=== PATIENT | male | born 1950 | race Caucasian/White ===

== ENCOUNTER → 2017-10-04 | Outpatient (CLI) | payer OTHER ==
[~2017-10-04] MED LIST: BUPIVACAINE MPF 0.25% 10 ML VIAL.; IOHEXOL 180 MG/ML 10 ML VIAL.; methylPREDNISolone ACETATE 80 MG/ML VIAL.
== END | disposition home or self-care (01) ==
LOC: PNCL 09:24
DX: M19.012 Primary osteoarthritis, left shoulder (principal); M16.11 Unilateral primary osteoarthritis, right hip; I10 Essential (primary) hypertension; E11.9 Type 2 diabetes mellitus without complications; J44.9 Chronic obstructive pulmonary disease, unspecified; Z87.891 Personal history of nicotine dependence; Z95.1 Presence of aortocoronary bypass graft; E78.00 Pure hypercholesterolemia, unspecified; F32.9 Major depressive disorder, single episode, unspecified; Z98.890 Other specified postprocedural states; Z79.899 Other long term (current) drug therapy; Z79.82 Long term (current) use of aspirin
CPT/HCPCS: 20610; 77002; J1040; J3490

== ENCOUNTER → 2017-10-19 | Outpatient (CLI) | payer OTHER | END | disposition home or self-care (01) | LOC: PNCL 09:21 | DX: M16.11 Unilateral primary osteoarthritis, right hip (principal); M19.012 Primary osteoarthritis, left shoulder | CPT/HCPCS: 20610; 77002; J1040; J3490 ==

== ENCOUNTER → 2018-01-21 | Outpatient (CLI) | payer MEDICARE, BC, OTHER | END | disposition home or self-care (01) | LOC: CT 09:16 | DX: J84.10 Pulmonary fibrosis, unspecified (principal); N28.1 Cyst of kidney, acquired; K86.89 Other specified diseases of pancreas; R91.1 Solitary pulmonary nodule | CPT/HCPCS: 71250 ==

== ENCOUNTER → 2018-05-24 | Outpatient (CLI) | payer MEDICARE, BC, OTHER ==
[~2018-05-24] MED LIST changes: +ASPI-482 PO; +ATOR40TA59 PO; +BACL10TA PO; +BUDE10.22 IH; -BUPIVACAINE MPF 0.25% 10 ML VIAL.; +CARV3.12 PO; +CHOL100013 PO; +DULO60CA6 PO; +FINA5TAB4 PO; -IOHEXOL 180 MG/ML 10 ML VIAL.; +LOSA100T2 PO; +MECL12.52 PO; +MULT1TAB52 PO; +OMEG1CAP6 PO; +PROVENTIL HFA6.7 GM IH; +TRAZ-85 PO; +ZINC50TA2 PO; -methylPREDNISolone ACETATE 80 MG/ML VIAL.
--- NOTE | 2018-05-24 10:27 | RAD ---
CT CHEST WO CONTRAST Indication: Lung nodule Technique: Noncontrast CT imaging was performed of the chest, multiplanar reconstruction images submitted. One or more of the following individualized dose reduction techniques were utilized for this examination: 1. Automated exposure control 2. Adjustment of the mA and/or kV according to patient size 3. Use of iterative reconstruction technique. Comparison: January 21, 2018 Findings: There again has been a median sternotomy. There is no new pericardial pleural effusion or pneumothorax. Thoracic aortic caliber is stable, ascending thoracic aorta ectatic about 3.9 cm. There is coronary calcification. No new significantly enlarged nodes are identified of the chest, although some mediastinal nodes as seen previously. Largest left paratracheal node measures about 1 cm short axis dimension, borderline in size although stable. There is mild emphysema. Major airways are patent. There is a tiny 0.2 cm nodule along the minor and major right upper lobe axial image 145 series 3, likely stable. There is what may represent a right hilar node axial image 160 about 0.8 cm short axis dimension although stable. There is again mild linear density of the left lower lobe probably due to fibrotic change. Tiny 0.2 cm nodule along the left major fissure axial image 145 series 3 is stable. Tiny 0.2 cm left upper lobe nodule axial image 55 is stable as is 0.2 cm left upper lobe nodule axial image 96. Thin section axial images are available for this exam, not available for previous exam. There is a 4.7 cm lesion of the superior left kidney with density measurements about 29 Hounsfield units. There is adjacent focus of density more anteriorly otherwise difficult to characterize if underlying lesion estimated about 2.4 cm although this could be due to lobulated margin of the kidney. There is small right renal calculus about 0.2 cm. IMPRESSION: 1. There are some tiny noncalcified pulmonary nodules although stable. If there are increased risk factors for neoplasm, 12 month follow-up is recommended as per revised Fleischner guidelines. 2. There is stable ectatic ascending thoracic aorta about 3.9 cm. There is coronary calcification. There has been a median sternotomy. 3. Borderline enlarged left paratracheal node is stable as are other smaller nodes of the mediastinum, no new significantly enlarged nodes. Nonspecific right hilar node is stable, not considered significantly enlarged. 4. There is again hypodense lesion of the superior left kidney which may be a complex cyst although also possible adjacent lesion more anteriorly, underlying solid mass difficult to exclude for which renal ultrasound advised. 5. There is small superior right renal calculus. Electronically signed by: Dick Vieyra MD (05/24/2018 10:24 AM) [id number]
== END | disposition home or self-care (01) ==
LOC: CT 08:46
PROVIDERS: ATTEND Internal Medicine Pulmonary Disease
DX: N20.0 Calculus of kidney (principal); I25.10 Atherosclerotic heart disease of native coronary artery without angina pectoris; I77.810 Thoracic aortic ectasia; I10 Essential (primary) hypertension; E11.9 Type 2 diabetes mellitus without complications; E78.00 Pure hypercholesterolemia, unspecified; J44.9 Chronic obstructive pulmonary disease, unspecified; Z87.891 Personal history of nicotine dependence
CPT/HCPCS: 71250

== ENCOUNTER → 2018-06-03 | Outpatient (CLI) | payer MEDICARE, BC, OTHER ==
--- NOTE | 2018-06-03 15:28 | RAD ---
Renal ultrasound, 06/03/2018: HISTORY: Left renal mass Right kidney measures 12.0 cm in length while the left kidney measures 12.3 cm. There is a 4.6 cm cyst arising from the upper pole the left kidney. No right renal mass is seen. The kidneys show no evidence of obstruction. The prostate gland is moderately enlarged impressing upon the posterior wall of the urinary bladder. The partially filled urinary bladder is otherwise unremarkable. IMPRESSION: 1. Left renal cyst. 2. The kidneys are otherwise unremarkable. 3. Moderate nonspecific prostatic enlargement. Electronically signed by: Toño Palmer MD (06/03/2018 3:24 PM) [facility]
== END | disposition home or self-care (01) ==
LOC: US 07:47
PROVIDERS: ATTEND Family Medicine
DX: N28.1 Cyst of kidney, acquired (principal); N40.0 Benign prostatic hyperplasia without lower urinary tract symptoms; I10 Essential (primary) hypertension; E11.9 Type 2 diabetes mellitus without complications; E78.00 Pure hypercholesterolemia, unspecified; M16.11 Unilateral primary osteoarthritis, right hip; M19.012 Primary osteoarthritis, left shoulder; J44.9 Chronic obstructive pulmonary disease, unspecified; I25.10 Atherosclerotic heart disease of native coronary artery without angina pectoris; Z87.891 Personal history of nicotine dependence; Z95.1 Presence of aortocoronary bypass graft
CPT/HCPCS: 76770

== ENCOUNTER → 2018-09-09 | Outpatient (CLI) | payer MEDICARE, OTHER ==
[~2018-09-09] MED LIST changes: +ALBU2.5V8 IH; +CONTRAST GIVEN. MC PRN; +IOHEXOL 300 MG/ML 100ML VIAL. IV ONE; -PROVENTIL HFA6.7 GM IH
[2018-09-09 11:15] LABS: CREATININE 1.5 mg/dL (0.7-1.3); GFR 46.4
--- NOTE | 2018-09-09 14:50 | RAD ---
CT ABDOMEN PELVIS WO/W Indication: KIDNEY STONE. ORGAN ABNORMALITY ON US OR XRAY.
IV OMNI 300 60 MLS AND WATER Exposure: One or more of the following individualized dose reduction techniques were utilized for this examination: 1. Automated exposure control 2. Adjustment of the mA and/or kV according to patient size 3. Use of iterative reconstruction technique. Comparison: None are available. Technique: Scanning performed before, during and after intravenous contrast administration. Oral contrast is not given. 3-D MIP reconstructions are obtained of the urinary tracts. FINDINGS: Lower thorax: Markings in both lung bases, likely due to atelectasis or fibrosis. Mild coronary artery calcification. Urinary tracts:No urolithiasis or hydronephrosis. Urinary bladder: Incompletely distended. There is some convex soft tissue density at the posterior inferior urinary bladder, measures about 23 mm x 15 mm x 36 mm. This may be indentation from the prostate, but a urinary bladder wall mass is also possible. Prostate gland is mildly enlarged. Kidneys: Hypodense lesions identified at both kidneys. Largest left upper pole measures 4.6 cm and 8 Hounsfield units compatible with a cyst. Smaller lesions are too small to characterize but likely also represent cysts. There is a small hyperdense lesion at the lower pole of the left kidney measures 8 mm, may represent a hemorrhagic cyst but a small solid mass is not possible to exclude. Liver: Unremarkable Spleen: Unremarkable Pancreas: Fatty atrophy Adrenals:No evidence of mass. Gallbladder: Contracted, no calcified stone Aorta: Mildly calcified, no evidence of aneurysm. Lymph nodes: Small retroperitoneal nodes, no significant enlargement. GI tract: Mild diverticulosis. Appendix is normal. Reproductive organs: Prostate gland is enlarged. Peritoneum: No evidence of pneumoperitoneum. No free fluid. Abdominal wall:Unremarkable Spine: Degenerative spondylosis. Bones: No destructive process. IMPRESSION: 1. There is a convex masslike structure at the posterior inferior urinary bladder. Nonspecific, considerations include urinary bladder wall tumor, prostate mass or prostatomegaly. Recommend cystoscopy for further evaluation. 2. Small 8 mm hyperdense lesion at the lower pole of the left kidney, could represent hemorrhagic cyst versus small solid renal mass. Recommend follow-up CT imaging or renal ultrasound. 3. Multiple additional hypodense renal lesions, most likely cysts. Electronically signed by: Mario Rubio MD (09/09/2018 2:46 PM) [facility]
== END | disposition home or self-care (01) ==
LOC: CT 10:43
PROVIDERS: ATTEND Urology
DX: K57.90 Diverticulosis of intestine, part unspecified, without perforation or abscess without bleeding (principal); N28.9 Disorder of kidney and ureter, unspecified; M47.896 Other spondylosis, lumbar region; R59.0 Localized enlarged lymph nodes; J44.9 Chronic obstructive pulmonary disease, unspecified; I10 Essential (primary) hypertension; I25.2 Old myocardial infarction; I25.10 Atherosclerotic heart disease of native coronary artery without angina pectoris; Z95.1 Presence of aortocoronary bypass graft; Z79.01 Long term (current) use of anticoagulants; Z87.891 Personal history of nicotine dependence
CPT/HCPCS: 36415; 74178; 82565; Q9967

== ENCOUNTER → 2018-10-04 | Outpatient (CLI) | payer MEDICARE, BC ==
[~2018-10-04] MED LIST changes: -CONTRAST GIVEN. MC PRN; -IOHEXOL 300 MG/ML 100ML VIAL. IV ONE; +TRAZ-118 PO; -TRAZ-85 PO
--- NOTE | 2018-10-04 10:27 | CARD ---
MR#: [id number] Date of Study: 10/04/2018 Ordering Physician: ENEDINA MCELROY, Referring Physician: ENEDINA MCELROY, Tech: Lorenza Vargas SVITLANA APPROVED REPORT EXAM: Two-dimensional and M-mode echocardiogram with Doppler and color Doppler. Other Information Quality : GoodHR: 65bpm Rhythm : NSR INDICATION Hypertension/HCVD 2D DIMENSIONS RVDd4.1 (2.9-3.5cm)Left Atrium(2D)5.1 (1.6-4.0cm) IVSd1.4 (0.7-1.1cm)Aortic Root(2D)3.8 (2.0-3.7cm) LVDd5.6 (3.9-5.9cm)LVOT Diameter2.4 (1.8-2.4cm) PWd1.2 (0.7-1.1cm)LVDs3.7 (2.5-4.0cm) FS (%) 34.2 %SV97.5 ml LVEF(%)62.6 (>50%) M-Mode DIMENSIONS Left Atrium(MM)5.01 (2.5-4.0cm)Aortic Root4.11 (2.2-3.7cm) Aortic Valve AoV Peak Calvin.146.9cm/sAoV VTI32.8cm AO Peak GR.8.6mmHgLVOT Peak Calvin.100.3cm/s AO Mean GR.4mmHgAVA (VMAX)3.19cm2 RADHA (VTI)3.00cm2 Mitral Valve MV E Gjlxmrhn57.0cm/sMV DECEL [id number] MV A Yrfurpoy29.9cm/sE/A Ratio1.2 MV A Lmpdhssn937it Pulmonary Valve PV Peak Exfvuyel572.4cm/s LEFT VENTRICLE The left ventricle is normal size. There is mild concentric left ventricular hypertrophy. The left ve ntricular systolic function is normal and the ejection fraction is within normal range. The Ejection Fraction is 55-60%. The basal inferoseptum appears akinetic. Remainder of the LV has normal wall svetlana on. Transmitral Doppler flow pattern is Grade II-pseudonormal filling dynamics. RIGHT VENTRICLE The right ventricle is mildly dilated. There is normal right ventricular wall thickness. The right ve ntricular systolic function is normal. ATRIA The left atrium is mildly dilated. The right atrium is mildly dilated. The interatrial septum is inta ct with no evidence for an atrial septal defect or patent foramen ovale as noted on 2-D or Doppler im aging. AORTIC VALVE The aortic valve is normal in structure and function. The aortic valve is trileaflet. Doppler and Col or Flow revealed no significant aortic regurgitation. There is no significant aortic valvular stenosi s. MITRAL VALVE The mitral valve is normal in structure and function. There is no evidence of mitral valve prolapse. There is no mitral valve stenosis. Doppler and Color-flow revealed trace mitral regurgitation. TRICUSPID VALVE The tricuspid valve is normal in structure and function. Doppler and Color Flow revealed trace tricus pid regurgitation. There is no tricuspid valve prolapse or vegetation. There is no tricuspid valve st enosis. PULMONIC VALVE Doppler and Color Flow revealed no pulmonic valvular regurgitation. There is no pulmonic valvular hernan nosis. GREAT VESSELS The aortic root is normal in size. The ascending aorta is normal in size. The IVC is normal in size a nd collapses >50% with inspiration. PERICARDIAL EFFUSION There is no evidence of significant pericardial effusion. Critical Notification Critical Value: No <Conclusion> The left ventricular systolic function is normal and the ejection fraction is within normal range. Th e Ejection Fraction is 55-60%. There is mild concentric left ventricular hypertrophy. The basal inferoseptum appears akinetic. Remainder of the LV has normal wall motion. Signed by : Enedina Mcelroy, Electronically Approved : 10/04/2018 10:26:00
== END | disposition home or self-care (01) ==
LOC: ECHO 07:48
PROVIDERS: ATTEND Internal Medicine Cardiovascular Disease
DX: I11.9 Hypertensive heart disease without heart failure (principal)
CPT/HCPCS: 93306

== ENCOUNTER → 2019-03-18 | Outpatient (CLI) | payer MEDICARE, BC ==
[2019-03-18 08:26] LABS: CREATININE 1.4 mg/dL (0.7-1.3); GFR 50.2
[2019-03-18] MEDS: IOHEXOL 300 MG/ML 100ML VIAL. IV ONE (09:00)
--- NOTE | 2019-03-18 13:18 | RAD ---
EXAM: CT Abdomen and Pelvis with IV contrast CLINICAL HISTORY: Renal and bladder lesions on prior CT. COMPARISON: CT 09/09/18, ultrasound 06/13/2018 TECHNIQUE: Helical CT of the abdomen and pelvis was performed following the CT urogram protocol. Specifically noncontrast and delayed phase images were obtained through the abdomen and pelvis and cortical medullary phase images were obtained through the abdomen. PQRS compliance statement - One or more of the following individualized dose reduction techniques were utilized for this study: 1. Automated exposure control 2. Adjustment of the mA and/or kV according to patient size 3. Use of iterative reconstruction technique FINDINGS: Lower chest: Linear opacities in the lower lobes likely scarring/atelectasis. Coronary artery calcifications are seen. Abdomen and Pelvis: No focal liver lesion. Gallbladder is normal. No biliary ductal dilatation. Spleen is unremarkable. Adrenal glands are normal. Pancreas is unremarkable. Moderate colonic stool content is seen. Appendix is normal. No small or large bowel dilatation. Colonic diverticulosis without evidence for acute diverticulitis. No renal tract calculus. The nephrograms are symmetric. The kidneys are normal in size and shape. A 6 mm hyperdense exophytic left lower pole renal lesion is seen, given the small size, evaluation for enhancement is limited although may represent hemorrhagic/proteinaceous cyst. A 4.5 cm left upper pole nonenhancing cystic lesion is grossly stable. A nonenhancing right upper pole and exophytic left lower pole renal cystic lesions are also grossly stable. The collecting systems and ureters are normal. Nodularity of the bladder wall dependently likely from the adjacent enlarged prostate, unchanged to 09/09/2018. No abdominal or pelvic ascites. No abdominal or pelvic lymphadenopathy by size criteria. Atherosclerotic ossifications of aorta are seen. Bones: Multilevel degenerative changes of the spine are seen. IMPRESSION: 1. Bilateral hypodense renal lesions are favored to represent cysts and are essentially stable. 2. Hypodense, mildly exophytic left lower pole renal lesion is too small to accurately characterize. 3. Nodularity of the inferior bladder wall posteriorly, likely from enlarged, nodular prostate, unchanged. Prostatic or bladder mass is not entirely excluded. Cystoscopy would provide additional details. Electronically signed by: Nish Wong MD (03/18/2019 1:15 PM) [facility]
== END | disposition home or self-care (01) ==
LOC: CT 07:52
PROVIDERS: ATTEND Urology
DX: N28.89 Other specified disorders of kidney and ureter (principal); I70.0 Atherosclerosis of aorta; M47.819 Spondylosis without myelopathy or radiculopathy, site unspecified
CPT/HCPCS: 36415; 74178; 82565; Q9967

== ENCOUNTER → 2019-04-18 | Outpatient (CLI) | payer MEDICARE, BC ==
--- NOTE | 2019-04-18 11:39 | RAD ---
MR#: [id number] Date of Study: 04/18/2019 Ordering Physician: ENEDINA MCELROY, Referring Physician: AJMES MEJIA Tech: RT Lori (R) (N) APPROVED REPORT Test Type: Exercise Stress Nurse/Tech: Shavon Yoder R.N. Test Indications: dyspnea, fatigue Cardiac History: Family history, Hypertension, Diabetes, CAD, CABG in 2007 Medications: See Electronic Medical Record Medical History: See Electronic Medical Record Resting ECG: NSR Resting Heart Rate: 60 bpm Resting Blood Pressure: 140/61mmHg Pretest Chest Pain: No chest pain Nurse/Tech Notes S1S2, lungs sound clear Consent: The procedure was explained to the patient in lay terms. Informed consent was witnessed. Rajesh eout was entered into [employer]. History and Stress Test performed by Shavon Yoder R.N. Stress Symptoms Dyspnea, Claudication, pt had upper audible wheezing at end of exercise but not heard in lower lungs, . wheezing subsided after 2 minutes of rest. we had to reduce rate of protocol and incline to finis h the last minute of test POST EXERCISE Reason for Termination: Reached target heart rate Target HR: 128 Max HR: 128 bpm 85% of Maximum Predicted HR: 151 bpm Exercise duration: 5 min min:sec, 2 Stage Max Blood Pressure: 197/65mmHg Blood Pressure response to exercise: Normal blood pressure response during stress. Chest Pain: No. Arrhythmia: No. INTERPRETATION Stress EKG Conclusion: The resting EKG shows a sinus rhythm and nonspecific ST-T wave changes. The stress EKG showed no significant changes from baseline. No EKG evidence of stress-induced ischemia. Imaging Protocol IMAGE PROTOCOL: Rest Tc-99m/stress Tc-99m 1 day Rest: Stress: Viability: Radiopharm.Tc99m AfgnwzflbCv14o Sestamibi Dose10.5mCi 33mCi Duration 13min. 13min. Img Date 04/18/2019 04/18/2019 Inj-Img Oaxh37qrb. 60min. Rest Admin Site:IV - Right HandAdministrator:Ca De León, RT (R)(N) Stress Admin Site: IV - Right HandAdministrator: Aniket Treviño, RT (R)(N) STRESS DATA End Diast. Vol.131.0mlLVEDV index BSA54.0ml End Syst. Vol.44.0mlLVESV index BSA18.0ml Myocardial Ilnj373.0gEject. Xpdxzjfe03.0% Stress Scores Regional WT0.00Summed WT3.00 Regional WM0.00Summed WM0.00 LV Perfusion The stress scans showed no significant defects. The rest scans showed no significant defects. Nuclear imaging shows no reversible ischemia or infarct. Wall Motion Left ventricular systolic function is intact with no regional wall motion abnormalities and an ejecti on fraction of 66%. LV Perf. Quant 17 Seg. SSS0.00 17 Seg. SRS0.00 17 Seg. SDS0.00 Stress Defect Extent (% LAD)0.00Rest Defect Extent (% LAD)0.00Rev. Defect Extent (% LAD)0.00 Stress Defect Extent (% LCX) 0.00Rest Defect Extent (% LCX)0.00Rev. Defect Extent (% LCX)0.00 Stress Defect Extent (% RCA)0.00Rest Defect Extent (% RCA)0.00Rev. Defect Extent (% RCA)0.00 Stress Defect Extent (% MATA)0.00Rest Defect Extent (% MATA)0.00Rev. Defect Extent (% MATA)0.00 Conclusion 1. Fair exercise tolerance. 2. No chest pain reported with exertion. 3. No EKG evidence of stressed induced ischemia. 4. Hypertensive response to exertion. 5. Nuclear imaging shows no reversible ischemia or infarct. 6. Normal left ventricular systolic function with an ejection fraction of 66%. 7. Moderately low risk treadmill nuclear stress test. Signed by : Tommy Mcnulty MD Electronically Approved : 04/18/2019 11:38:46
== END | disposition home or self-care (01) ==
LOC: NM 09:20
PROVIDERS: ATTEND Internal Medicine Cardiovascular Disease
DX: R06.00 Dyspnea, unspecified (principal); R53.83 Other fatigue; I10 Essential (primary) hypertension; E11.9 Type 2 diabetes mellitus without complications; I25.10 Atherosclerotic heart disease of native coronary artery without angina pectoris; Z95.1 Presence of aortocoronary bypass graft; Z82.49 Family history of ischemic heart disease and other diseases of the circulatory system; Z79.01 Long term (current) use of anticoagulants
CPT/HCPCS: 78452; 93017; A9500; 96376

== ENCOUNTER → 2019-07-08 | Outpatient (CLI) | payer MEDICARE, BC ==
--- NOTE | 2019-07-09 11:00 | RAD ---
Examination: CT CHEST WO CONTRAST History: Lung nodule Comparison/Correlation: 05/24/2018 CT chest without contrast Findings: Axial images of the chest were obtained without contrast. Sagittal and coronal reformatted images were provided. Sternal wires are present. No enlarged thoracic lymph nodes. Borderline left paratracheal lymph node previously described has remained stable. No suspicious pulmonary nodule or mass. Few perifissural lymph nodes are present. No infiltrates or pleural effusions. Left renal superior pole cyst is present. Bony structures are unremarkable. Impression: No suspicious pulmonary nodule or other suspicious finding. PQRS Compliance Statement: One or more of the following individualized dose reduction techniques were utilized for this examination: 1. Automated exposure control 2. Adjustment of the mA and/or kV according to patient size 3. Use of iterative reconstruction technique Electronically signed by: Vaibhav Fernandes MD (07/09/2019 10:57 AM) [facility]
== END | disposition home or self-care (01) ==
LOC: CT 11:58
PROVIDERS: ATTEND Internal Medicine Pulmonary Disease
DX: R91.1 Solitary pulmonary nodule (principal)
CPT/HCPCS: 71250

== ENCOUNTER → 2020-04-22 | Outpatient (CLI) | payer MEDICARE, BC ==
[~2020-04-22] MED LIST changes: -ALBU2.5V8 IH; -MECL12.52 PO; +MECL12.573 PO; +MULT-445 PO; -MULT1TAB52 PO; +PROVENTIL HFA6.7 GM IH; +ZINC50TA10 PO; -ZINC50TA2 PO
== END | disposition home or self-care (01) ==
LOC: LAB 13:46
PROVIDERS: ATTEND Internal Medicine Cardiovascular Disease
DX: Z11.59 Encounter for screening for other viral diseases (principal)
CPT/HCPCS: U0003-CS

== ENCOUNTER 2020-04-26 06:59 | Outpatient (CLI) | payer MEDICARE, BC ==
[~2020-04-26] VITALS: Ht 182.9 cm; Wt 113.4 kg
[2020-04-26] VITALS (10 sets, daily range): BP systolic 108–139; BP diastolic 58–69
[2020-04-26 07:39] LABS: HEMATOCRIT 38.1 % (39.0-53.0); HEMOGLOBIN 13.1 g/dL (13.0-17.5); RED BLOOD COUNT 4.32 x10^6/uL (4.30-5.70); WHITE BLOOD COUNT 6.1 x10^3/uL (4.0-11.0)
[2020-04-26] MEDS ORDERED: IODIXANOL 320 MG/ML 100 ML VIAL. ONE (07:42)
[2020-04-26] MEDS ORDERED: LIDOCAINE 1% Multi-Dose 20 ML VIAL. ONE (07:42)
[2020-04-26] MEDS ORDERED: HEPARIN for ARTERIAL LINE 1,500 ML ONE (07:43)
[2020-04-26 07:46] LABS: CALCIUM 8.8 mg/dL (8.5-10.1); CREATININE 1.4 mg/dL (0.7-1.3); GFR 50.1; POTASSIUM 3.8 mmol/L (3.5-5.1)
[2020-04-26] MEDS ORDERED: UBID300C PO (08:09)
[2020-04-26] MEDS ORDERED: TURM538C PO (08:09)
[2020-04-26] MEDS ORDERED: AMLO10TA4 PO (08:09)
[2020-04-26] MEDS ORDERED: METF10007 PO (08:09)
[2020-04-26] MEDS ORDERED: ALOG25TA PO (08:09)
[2020-04-26] MEDS ORDERED: VIT1CAPS PO (08:09)
[2020-04-26] MEDS ORDERED: HYDR-2145 PO (08:09)
[2020-04-26] MEDS ORDERED: MAGN400T5 PO (08:09)
[2020-04-26] MEDS ORDERED: MIDAZOLAM HCL/PF 2 MG/2 ML VIAL. ONE (08:33)
[2020-04-26] MEDS ORDERED: fentaNYL PF VIAL 100 MCG/2 ML VIAL ONE (08:33)
[2020-04-26] MEDS ORDERED: IODIXANOL 320 MG/ML 100 ML VIAL. IART ONE (09:00)
[2020-04-26] MEDS ORDERED: MIDAZOLAM HCL/PF 2 MG/2 ML VIAL. IV ONE (09:00)
[2020-04-26] MEDS ORDERED: CONTRAST GIVEN. MC PRN (09:00)
[2020-04-26] MEDS ORDERED: LIDOCAINE 1% Multi-Dose 20 ML VIAL. INJ ONE (09:00)
[2020-04-26] MEDS ORDERED: fentaNYL PF VIAL 100 MCG/2 ML VIAL IV ONE (09:00)
[2020-04-26] MEDS ORDERED: 0.9 % SODIUM CHLORIDE 10 ML DISP.SYRIN. IV PRN (09:15)
[2020-04-26] MEDS ORDERED: NITROGLYCERIN SUBLINGUAL 0.4 MG BOTTLE OF 25. SL PRN (09:15)
--- NOTE | 2020-04-26 09:15 | PDOC ---
MODERATE SEDATION ASSESSMENT RISKS/ALTERNATIVES Risks/Alternatives Risks and alternatives of this type of sedation and procedure discussed with: RISK/ALTERNATIVES: Patient H & P ON CHART H & P H & P on chart and reviewed for co-morbid conditions and appropriate labs. H&P ON CHART: Yes STATUS PREG STATUS ASSESSED: N/A MEDS/ALLERGIES REVIEWED Meds/Allergies Reviewed Medications and Allergies including time and route of recently administered narcotics and sedatives. MEDS/ALLERGIES REVIEWED: Yes ASA RATING ASA RATING: II AIRWAY ASSESSMENT Airway Assessment Airway patency, oral function limitations, presence of caps, crowns, dentures, partials, and ability to extend neck assessed. AIRWAY ASSESSMENT: Yes MALLAMPATI SCORE MALLAMPATI SCORE: II PRE-SEDATION ASSESSMENT PRE-SEDATION ASSESSMENT: Yes ENEDINA MCELROY MD Apr 26, 2020 09:15
--- NOTE | 2020-04-26 09:27 | CARD ---
MR#: [id number] Date of Study: 04/26/2020 Ordering Physician: ENEDINA FORREST, Referring Physician: ENEDINA FORREST, Tech: Zee Borrego RT(R) APPROVED REPORT Technologist: Zee Borrego RT(R) Nurse: Mila Dimas R.N. Procedure(s) performed: Sedation Time: 40 Minutes Dose: 77.89 Gycm2 Conatrst: 47 mL Visipaque 320 Fluoro Time: 6.3 Minutes RHC, LHC, Coronary angiography, Bypass angiography HISTORY The patient is a 69 year-old male with a history of : coronary artery disease, tobacco history() , hy pertension, dyslipidemia. INDICATION The indication(s) include : unstable angina , dyspnea. [facility] Clinical Frailty Scale [facility] Clinical Frailty Scale: Managing Well Heart Failure Heart Failure: Yes If Yes, Newly Diagnosed: No If Yes, HF Type: Diastolic If Yes, NYHA Class: Class II CASE TECHNIQUE During this case, Fluoroscopy and low osmolar contrast were used for imaging. PROCEDURE NARRATIVE After explaining the risks and benefits of the procedure and alternatives, informed consent was obtai иван. The patient was brought electively to the cardiac catheterization lab in a fasting state. A yue eout was performed confirming the patient's name, date of , procedure, and site of procedure. A ll necessary personnel were wearing the appropriate protective equipment and radiation monitor device s. (See nursing notes for medications administered). The right groin was sterilely prepped and drap ed in the usual fashion. The right groin was infiltrated with 10 mL of 2% lidocaine for subcutaneous anesthesia. A 6 F sheath was inserted into the right femoral artery without difficulty. A 5Fr sheat h was placed in the RCFV. Right and left coronary angiography was performed using a JR4 and JL4 zelalem ter. Left ventricular end diastolic pressure was obtained with a pigtail catheter and pullback was p erformed. A 5fr PA catheter was advanced through the right heart chambers and pressures and saturatio ns were obtained. A JR4, KINGSLEY and MPA catheters were used to perform bypass angiography. All catheter exchanges and advancements were performed over a guidewire. At case completion the right femoral sh eath was removed and hemostasis was achieved with an Angioseal Device after limited femoral angiograp hy confirmed adequate vessel size and anatomy. The RCFV sheath was removed via manual compression. T here were no acute complications. HEMODYNAMICS: AO: 120/80 LVEDP 18 mm Hg No gradient on LV to aortic pullback. RHC: RA: 22/21/18 mm Hg RV: 46/10/20 PA: 45/22/33 PCWP: 27/27/23 PA sat: 71% FA sat: 97% Felix CO: 5.66 L/min Felix CI: 2.4 LEFT VENTRICULOGRAM: Deferred due to renal insufficiency. CORONARY ANGIOGRAPHY: LM is a large caliber vessel with mild luminal irregularities. LAD is proximally occluded. The mid and distal vessel is seen fill via a patent VIEIRA graft and has no significant disease. LCx is a moderate caliber non-dominant vessel with up to 50% stenosis. OM1 is a moderate caliber vessel with normal angiographic appearance. RCA is a large caliber dominant vessel with a proximal 100% occlusion. RPDA is a moderate caliber vessels with normal angiographic appearance and seen to fill via SVG seque ntial graft to RCA and PDA. BYPASS ANGIOGRAPHY: VIEIRA to LAD is widely patent without anastomotic stenosis. SVG sequential graft to dRCA and RPDA is widely patent without anastomotic stenosis. Conclusion 1. Mild biventricular pressure overload. 2. Pulmonary HTN. mPA 33 mm Hg. 3. Normal cardiac output. 4. Three vessel coronary disease. 5. 3/3 grafts patent. Recommendations Aggressive medical therapy with optimization of volume and pulmonary HTN. Signed by : Enedina Forrest, Electronically Approved : 04/26/2020 09:27:24
--- NOTE | 2020-04-26 11:53 | NUR ---
Discharge Note: MARISOL KRISHNAMURTHY Discharge instructions and discharge home medications reviewed with Patient and a copy given. All questions have been answered and understanding verbalized. The following instructions and handouts were given: Post moderate sedation and groin site care Discontinued lines and drains: Right hand iv dc'd and tip intact. Patient discharged to home with via personal vehicle.
== END 2020-04-26 11:45 | disposition home or self-care (01) ==
LOC: CCL 06:59
PROVIDERS: ATTEND Internal Medicine Cardiovascular Disease
DX: I25.110 Atherosclerotic heart disease of native coronary artery with unstable angina pectoris (principal); N28.9 Disorder of kidney and ureter, unspecified; I27.20 Pulmonary hypertension, unspecified; E78.5 Hyperlipidemia, unspecified; I11.0 Hypertensive heart disease with heart failure; I50.9 Heart failure, unspecified; Z87.891 Personal history of nicotine dependence; Z98.890 Other specified postprocedural states; Z79.899 Other long term (current) drug therapy
CPT/HCPCS: 36415; 80048; 85027; 85610; 93461; 99152; 99153; C1760; C1769; C1773; C1892; G0269; J1644; J2250; J3010; J3490; Q9967; C1771

== ENCOUNTER → 2020-08-13 | Outpatient (CLI) | payer MEDICARE, BC ==
[2020-04-26 11:25] VITALS: BP 132/69
[~2020-08-13] MED LIST changes: +ALOG25TA PO; +AMLO10TA4 PO; +HYDR-2145 PO; +MAGN400T5 PO; +METF10007 PO; +TURM538C PO; +UBID300C PO; +VIT1CAPS PO
--- NOTE | 2020-08-13 10:27 | RAD ---
CT of the chest without contrast 08/13/2020 INDICATION: COPD COMPARISON STUDY: CT of the chest without contrast July 08, 2019. TECHNIQUE: Multidetector CT imaging of the chest was performed without the administration of IV contrast. FINDINGS: Heart is mildly enlarged. Coronary calcification noted. Scattered mediastinal lymph nodes, mildly prominent are seen, but unchanged with respect to comparison study. There is no pneumothorax, pleural effusion, or focal consolidative infiltrate. Small calcified granuloma noted in the right lower lobe. Comparison study fissure on nodule in the right lower lobe measuring 3 mm in diameter is unchanged from comparison exam. No acute osseous changes are identified. No acute abnormalities in the upper abdomen are identified. IMPRESSION: 1. No evidence of acute cardiopulmonary process 2. Stable 3 mm superficial nodule, right lower lobe. Recommend follow-up CT chest in one year. CT DOSING PQRS STATEMENT: One or more of the following individualized dose reduction techniques were utilized for this examination: 1. Automated exposure control 2. Adjustment of the mA and/or kV according to patient size 3. Use of iterative reconstruction technique Electronically signed by: Kvng Lincoln MD (08/13/2020 10:24 AM) [id number]
== END ==
LOC: CT 09:46
PROVIDERS: ATTEND Internal Medicine Pulmonary Disease
DX: J44.9 Chronic obstructive pulmonary disease, unspecified (principal); R91.1 Solitary pulmonary nodule
CPT/HCPCS: 71250

== ENCOUNTER → 2020-11-09 | Outpatient (CLI) | payer MEDICARE, BC ==
[2020-04-26 11:25] VITALS: BP 132/69
[~2020-11-09] MED LIST changes: -MECL12.573 PO; +MECL12.574 PO
--- NOTE | 2020-11-09 13:09 | RAD ---
MR#: [id number] Date of Study: 11/09/2020 Ordering Physician: ENEDINA MCELROY, Referring Physician: ENEDINA MCELROY, Tech: Abbie Erickson, CARISSAMS, RVT, RTR APPROVED REPORT Patient Location: OUT-PATIENT Laterality:Bilateral Indications Bruit Risk Factors Hyperlipidemia Smoking Doppler Spectral Velocity Analysis Right Left pCCA 119/24 cm/spCCA 144/30 cm/s mCCA 90/22 cm/smCCA 82/22 cm/s dCCA 105/26 cm/sdCCA 81/20 cm/s Bulb 73/20 cm/sBulb 70/13 cm/s ECA 137/18 cm/sECA 95/12 cm/s pICA 104/29 cm/spICA 98/14 cm/s Payam 73/23 cm/smICA 99/14 cm/s dICA 65/22 cm/sdICA 114/30 cm/s Vert. 34/8 cm/sVert. 53/16 cm/s ICA/CCA 1.15ICA/CCA 1.39 Findings Grayscale images demonstrate minimal atherosclerosis bilaterally. Spectral waveforms and color Doppler are grossly within normal limits in the bilateral internal carot id arteries with suggestive of overall 0 to less than 50% stenosis based on velocity criteria. Mildl y elevated left proximal common carotid artery velocities likely related to tortuosity but cannot rul e out approximately a moderate 50% stenosis. Normal ICA to CCA ratios bilaterally. Normal vertebral antegrade velocities bilaterally. Critical Notification Critical Value: No <Conclusion> 1. No significant carotid occlusive disease bilaterally Signed by : Enedina Mcelroy, Electronically Approved : 11/09/2020 13:08:39
--- NOTE | 2020-11-09 13:12 | RAD ---
MR#: [id number] Date of Study: 11/09/2020 Ordering Physician: ENEDINA MCELROY, Referring Physician: ENEDINA MCELROY, Tech: Abbie Erickson RDMS, RVT, RTR APPROVED REPORT Patient Location: OUT-PATIENT Indications Grayscale images of the abdominal aorta are mildly limited due to body habitus. The proximal aorta is not well seen but the mid and distal aorta did not demonstrate any evidence of aneurysm. Measurements as noted above. Normal aortic velocities noted. Aortic bifurcation is not v isualized. Overall technically limited study. Risk Factors Hypertension SmokingHyperlipidemia Duplex Results A/PTransverseLongitudinal Mid Aorta 2.1cm1.9cm1.76cm Distal Aorta 2.0cm1.8cm1.72cm Doppler VelocityWaveform Aorta Mid. 101.8 cm/secBiphasic Distal Aorta 86.0 cm/secBiphasic Critical Notification Critical Value: No <Conclusion> 1. No significant abdominal aortic aneurysm, limited study due to body habitus. Signed by : Enedina Mcelroy, Electronically Approved : 11/09/2020 13:12:27
== END ==
LOC: US 10:51
PROVIDERS: ATTEND Internal Medicine Cardiovascular Disease
DX: R09.89 Other specified symptoms and signs involving the circulatory and respiratory systems (principal); Z72.0 Tobacco use
CPT/HCPCS: 76770; 93880

== ENCOUNTER → 2021-07-27 | Outpatient (CLI) | payer BC, MEDICARE ==
[2020-04-26 11:25] VITALS: BP 132/69
[~2021-07-27] MED LIST changes: -DULO60CA6 PO; +DULO60CA7 PO; +MAGN400T48 PO; -MAGN400T5 PO; -MECL12.574 PO; +MECL12.582 PO
--- NOTE | 2021-07-27 16:16 | RAD ---
EXAM: CT CHEST WITHOUT CONTRAST HISTORY: COPD COMPARISON: CT chest 08/13/2020 TECHNIQUE: Helical CT of the chest performed without contrast. Coronal and sagittal reformats were o btained. One or more of the following individualized dose reduction techniques were utilized for this examinat ion: 1. Automated exposure control 2. Adjustment of the mA and/or kV according to patient size 3. Use of iterative reconstruction technique. FINDINGS: Thyroid gland and thoracic inlet: The visualized portion of the thyroid gland is normal. Heart and great vessels: The heart is normal in size. There are surgical changes of CABG. No pericard ial effusion. The thoracic aorta is normal in caliber with mild calcified atherosclerosis. Mediastinum and jesse: Multiple tiny mediastinal and hilar lymph nodes are unchanged. Lungs and pleura: There are 2 unchanged 2-3 mm noncalcified nodule in the left upper lobe (image 19 a nd 20). There is an unchanged 3 mm perifissural nodule in the lingula abutting the major fissure. Unc hanged 3 mm nodule in the right upper lobe abutting the major fissure (image 32). Unchanged calcified granuloma in the right lower lobe. There is unchanged mild atelectasis in the posterior left lower l obe. No pleural effusion. Central airways are clear. Chest wall and axillae: No axillary lymphadenopathy. The chest wall is unremarkable. Upper abdomen: There is a 4.4 cm simple cyst in the left kidney. 1 cm simple cyst in the medial right kidney. Bones: No acute osseous abnormality. IMPRESSION: 1. A few scattered noncalcified pulmonary nodules bilaterally measuring up to 3 mm are unchanged. 2. Unchanged simple renal cysts. Electronically signed by: Jessica Kerns MD (07/27/2021 4:14 PM) [id number]
== END ==
LOC: CT 09:16
PROVIDERS: ATTEND Internal Medicine Pulmonary Disease
DX: J44.9 Chronic obstructive pulmonary disease, unspecified (principal); J84.10 Pulmonary fibrosis, unspecified; J98.11 Atelectasis; I70.0 Atherosclerosis of aorta; R59.0 Localized enlarged lymph nodes; N28.1 Cyst of kidney, acquired
CPT/HCPCS: 71250

== ENCOUNTER → 2021-11-15 | Outpatient (CLI) | payer BC, MEDICARE ==
[2020-04-26 11:25] VITALS: BP 132/69
--- NOTE | 2021-11-15 17:48 | CARD ---
MR#: [id number] Date of Study: 11/15/2021 Ordering Physician: ENEDINA MCELROY, Referring Physician: ENEDINA MCELROY, Tech: Lesa Bauer [facility] APPROVED REPORT EXAM: Two-dimensional and M-mode echocardiogram with Doppler and color Doppler. Other Information Quality : GoodHR: 54bpm Rhythm : NSR INDICATION Cardiac Disease: CAD RISK FACTORS Hypertension Hyperlipidemia Diabetes 2D DIMENSIONS RVDd3.4 (2.9-3.5cm)Left Atrium(2D)4.7 (1.6-4.0cm) IVSd1.1 (0.7-1.1cm)Aortic Root(2D)3.9 (2.0-3.7cm) LVDd6.2 (3.9-5.9cm)LVOT Diameter2.1 (1.8-2.4cm) PWd1.0 (0.7-1.1cm)LVDs3.6 (2.5-4.0cm) FS (%) 42.5 %SV141.7 ml LVEF(%)72.5 (>50%) Aortic Valve AoV Peak Calvin.135.4cm/sAoV VTI34.0cm AO Peak GR.7.3mmHgLVOT Peak Calvin.113.5cm/s AO Mean GR.4mmHgAVA (VMAX)2.85cm2 Mitral Valve MV E Oqixdkxq924.6cm/sMV DECEL QWBF178dg MV A Hwbixcny02.7cm/sE/A Ratio1.4 Pulmonary Valve PV Peak Gyiwsias793.7cm/s LEFT VENTRICLE The Left Ventricle is mildly dilated. There is normal left ventricular wall thickness. The left ventr icular systolic function is normal. Estimated ejection fraction 60%. There is normal LV segmental wa ll motion. The left ventricular diastolic function and filling is normal for age. RIGHT VENTRICLE The right ventricle is normal size. There is normal right ventricular wall thickness. The right ventr icular systolic function is normal. ATRIA The left atrium size is normal. The right atrium size is normal. The interatrial septum is intact wit h no evidence for an atrial septal defect or patent foramen ovale as noted on 2-D or Doppler imaging. AORTIC VALVE The aortic valve is normal in structure and function. Doppler and Color Flow revealed no significant aortic regurgitation. There is no significant aortic valvular stenosis. MITRAL VALVE The mitral valve is normal in structure and function. There is no evidence of mitral valve prolapse. There is no mitral valve stenosis. Doppler and Color-flow revealed mild mitral regurgitation. TRICUSPID VALVE The tricuspid valve is normal in structure and function. Doppler and Color Flow revealed no tricuspid valve regurgitation noted. There is no tricuspid valve stenosis. PULMONIC VALVE The pulmonary valve is normal in structure and function. Doppler and Color Flow revealed trace pulmon ic valvular regurgitation. GREAT VESSELS The aortic root is mildly enlarged. The ascending aorta is Mildly dilated. The IVC is normal in size and collapses >50% with inspiration. PERICARDIAL EFFUSION There is no evidence of significant pericardial effusion. Critical Notification Critical Value: No <Conclusion> The left ventricular systolic function is normal. Estimated ejection fraction 60%. There is normal LV segmental wall motion. Mild mitral regurgitation. There is no evidence of significant pericardial effusion. Signed by : Rohith Velasquez, Electronically Approved : 11/15/2021 17:48:03
== END ==
LOC: ECHO 09:40
PROVIDERS: ATTEND Internal Medicine Cardiovascular Disease
DX: I34.0 Nonrheumatic mitral (valve) insufficiency (principal); I51.7 Cardiomegaly; I77.810 Thoracic aortic ectasia; I25.10 Atherosclerotic heart disease of native coronary artery without angina pectoris
CPT/HCPCS: 93306; C8929

== ENCOUNTER 2021-12-22 07:49 | Emergency (ER) | payer MEDICARE, OTHER ==
[~2021-12-22] VITALS: Ht 182.9 cm; Wt 106.8 kg
--- NOTE | 2021-12-22 07:51 | PHYS DOC ---
Past Medical History Smoking Status: Former Smoker General Adult EDM: Chief Complaint: BLOOD IN URINE HPI: HPI: Patient is a 71 year old male who presents by private vehicle, from home, with report of gross hematuria, urinary urgency and dysuria, symptoms began last ni ght. Symptoms continued to this morning. He denies abdominal pain, back or flank pain. He denies chest pain, dyspnea. He denies bleeding from other sites or sources. He denies bowel habit changes. He has a history of previous kidney stones, but he admits that this does not feel the same. He takes aspirin but no other anticoagulant medication. No reported abdominal or pelvic or flank trauma reported. No other complaints. Review of Systems: Review of Systems: Constitutional: Denies fever or chills. [] Respiratory: Denies cough or shortness of breath. [] Cardiovascular: Denies chest pain or edema. [] GI: Denies abdominal pain, nausea, vomiting, diarrhea, melena or hematochezia : Reports gross hematuria, dysuria and urinary urgency. Denies back or flank pain. Denies scrotal pain or swelling. Musculoskeletal: Denies back pain, denies flank pain, denies joint pain or swelling. Integument: Denies rash. [] Neurologic: Denies headache, focal weakness or sensory changes. [] Psychiatric: Denies depression or anxiety. [] Heart Score: C/O Chest Pain: No Risk Factors: Risk Factors: DM, Current or recent (<one month) smoker, HTN, HLP, family history of CAD, obesity. Risk Scores: Score 0 - 3: 2.5% MACE over next 6 weeks - Discharge Home Score 4 - 6: 20.3% MACE over next 6 weeks - Admit for Clinical Observation Score 7 - 10: 72.7% MACE over next 6 weeks - Early Invasive Strategies Allergies: Allergies: Allergies Coded Allergies Type Severity Reaction Last Updated Verified No Known Drug Allergies 04/26/20 No Physical Exam: PE: Constitutional: Well developed, well nourished, no acute distress, non-toxic appearance. [] HENT: Normocephalic, atraumatic Eyes: Conjunctiva normal, no discharge. [] Neck: Normal range of motion, no tenderness, supple, no stridor. [] Cardiovascular:Heart rate regular rhythm, +2 radial and +2 posterior tibial pulses bilaterally Lungs & Thorax: Bilateral breath sounds clear to auscultation [] Abdomen: Abdomen is obese, soft, nondistended, normal bowel sounds, nontender to palpation. No palpable pulsatile mass. No audible bruit. No CVA tenderness. No flank abdominal ecchymoses. Skin: Warm, dry, no erythema, no rash. [] Back: No tenderness, no CVA tenderness. Full range of motion. Extremities: No tenderness, no cyanosis, no clubbing, ROM intact, no edema. No calf tenderness. Neurologic: Alert and oriented X 3, normal motor function, normal sensory function, no focal deficits noted. Ambulatory with a steady gait. Psychologic: Affect is flat, he is cooperative and pleasant. EKG: EKG: [] Radiology/Procedures: Radiology/Procedures: IMAGING REPORT Signed PATIENT: MARISOL KRISHNAMURTHY ACCOUNT: [id number] : 1950 LOCATION: ER AGE: 71 SEX: M EXAM STATUS: REG ER ORD. PHYSICIAN: NANCY NEWELL DO REASON: hematuria, hx of stones, UTI PROCEDURE: CT ABDOMEN PELVIS WO CONTRAST EXAMINATION: Renal kidney stone study. INDICATION: Hematuria, history of stones, UTI COMPARISONS: CT abdomen pelvis from 03/18/2019 TECHNIQUE: Axial 3 mm thick sections were obtained without oral or IV contrast. Sagittal and coronal reformats were obtained. FINDINGS: KIDNEYS AND RENAL COLLECTING SYSTEMS RIGHT KIDNEY AND URETER: No evidence of right renal or ureteric calculi. No hydronephrosis. Stable appearance of right upper and lower pole cysts LEFT KIDNEY AND URETER: No evidence of left renal or ureteric calculi. No hydronephrosis. Stable 4.5 cm left upper pole cystic lesion, attenuation there is simple cyst. Similar subcentimeter hyperattenuating focus in the lower pole favoring a hemorrhagic/ proteinaceous cyst relatively similar nonspecific bilateral perinephric stranding. URINARY BLADDER: Bladder is partially decompressed accentuating the wall thickness. Similar nodularity of the bladder trigone likely from adjacent enlarged prostate, unchan ged from priors. OTHER: Similar asymmetric left greater than right scarring and/or atelectasis. Heart size is normal. Partially evaluated coronary atherosclerotic disease. The evaluation of the solid organs is limited due to lack of IV contrast. The evaluation of bowel is limited due to lack of oral contrast. No focal liver lesions. Gallbladder is normal. No biliary ductal dilation. The spleen, adrenals, and pancreas are unremarkable. Tiny hiatal hernia. Stomach is decompressed and unremarkable. No evidence of bowel obstruction or focal inflammation. Scattered colonic diverticulosis without diverticulitis. Mild colorectal stool burden. Index is normal. No free intra-abdominal air or free fluid. No pathologically enlarged abdominal or pelvic adenopathy. Scattered aortobiiliac atherosclerotic disease. No evidence of aneurysmal dilation. Anterior abdominal wall is unremarkable. Partially imaged median sternotomy wires. No evidence of acute fracture or suspicious osseous abnormalities. IMPRESSION: 1. No imaging findings of obstructive uropathy to correlate with patient's symptoms. Correlate with urinalysis to exclude urinary tract infection. 2. Stable bilateral hypodense renal lesions favored to represent cysts. 3. Overall stable nodularity of the inferior bladder wall, likely from enlarged nodular prostate gland, unchanged. Relation with PSA and possibly follow-up with cystoscopy if indicated. Electronically signed by: Maryse Cespedes DO (12/22/2021 11:20 AM) [id number] DICTATED and SIGNED BY: MARYSE CESPEDES DO DATE: 12/22/21 1104 Course & Med Decision Making: Course & Med Decision Making Pertinent Labs and Imaging studies reviewed. (See chart for details) Patient is given IV Rocephin for treatment of UTI/hemorrhagic cystitis. Imaging studies are unremarkable. He is hemodynamically stable, denies any pain or discomfort, appears overall well. He understands that urine culture is pending, he should be notified of any need to change antibiotics based on this result. I recommend he contact his PCP for follow-up within the next week. Strict return precautions are given. He verbalizes understanding and is comfortable to plan for discharge home. Dragon Disclaimer: Dragon Disclaimer: This electronic medical record was generated, in whole or in part, using a voice recognition dictation system. Departure Departure Impression: Primary Impression: Urinary tract infection Qualified Codes: N30.01 - Acute cystitis with hematuria Disposition: HOME / SELF CARE / HOMELESS Condition: STABLE Referrals: ILEANA GOLDEN MD (PCP) Patient Instructions: Urinary Tract Infection Additional Instructions: Take the full course of antibiotics. If there is any need to change antibiotics based on your urine culture results, you should be notified, in about 2 days. Return to the ER immediately for severe abdominal pain, severe back or flank pain, temperature 100.4 or higher, uncontrolled vomiting or any other concerns. Please follow-up with your primary care physician Scripts Cefdinir (CEFDINIR) 300 Mg Capsule 1 CAP PO BID for 7 Days, #14 CAP Prov: NANCY NEWELL DO 12/22/21 NANCY NEWELL DO Dec 22, 2021 07:51
--- NOTE | 2021-12-22 08:08 | NUR ---
Bladder scan result 87 mL. Janet CARRASCO notified.
[2021-12-22 08:37] LABS: BASO % 0 % (0-3); EOS % 0 % (0-3); HEMATOCRIT 36.5 % (39.0-53.0); HEMOGLOBIN 11.8 g/dL (13.0-17.5); LYMPH # 0.8 x10^3/uL (1.0-4.8); LYMPH % 4 % (24-48); MEAN CORPUSCULAR HEMOGLOBIN 30 pg (25-35); MEAN CORPUSCULAR HGB CONC 32 g/dL (31-37); MEAN CORPUSCULAR VOLUME 91 fL (79-100); MONO # 1.6 x10^3/uL (0.0-1.1); MONO % 9 % (0-9); NEUT # 16.1 x10^3/uL (1.8-7.7); NEUT % 87 % (31-73); PLATELET COUNT 155 x10^3/uL (140-400); RED CELL DISTRIBUTION WIDTH 14.2 % (11.5-14.5); WHITE BLOOD COUNT 18.6 x10^3/uL (4.0-11.0)
[2021-12-22 08:54] LABS: CALCIUM 8.9 mg/dL (8.5-10.1); CREATININE 1.6 mg/dL (0.7-1.3); GFR 42.7; POTASSIUM 3.7 mmol/L (3.5-5.1)
[2021-12-22 09:16] LABS: % BANDS 5 % (0-9); % LYMPHS 3 % (24-48); % METAS 1 % (0-0); % MONOS 4 % (0-10); % SEGS 87 % (35-66); PLT ESTIMATE ADEQUATE (ADEQUATE)
[2021-12-22 09:26] VITALS: BP 108/52
[2021-12-22 10:06] LABS: HYALINE CASTS, URINE FEW /HPF
[2021-12-22 10:07] LABS: BACTERIA,URINE MODERATE /HPF (0-FEW); RBC,URINE TNTC /HPF (0-2); WBC,URINE >40 /HPF (0-4)
[2021-12-22] MEDS ORDERED: cefTRIAXone IV Push 1 GM VIAL. IVP ONE (10:15)
--- NOTE | 2021-12-22 11:22 | RAD ---
EXAMINATION: Renal kidney stone study. INDICATION: Hematuria, history of stones, UTI COMPARISONS: CT abdomen pelvis from 03/18/2019 TECHNIQUE: Axial 3 mm thick sections were obtained without oral or IV contrast. Sagittal and coronal reformats were obtained. FINDINGS: KIDNEYS AND RENAL COLLECTING SYSTEMS RIGHT KIDNEY AND URETER: No evidence of right renal or ureteric calculi. No hydronephrosis. Stable appearance of right upper a nd lower pole cysts LEFT KIDNEY AND URETER: No evidence of left renal or ureteric calculi. No hydronephrosis. Stable 4.5 cm left upper pole cysti c lesion, attenuation there is simple cyst. Similar subcentimeter hyperattenuating focus in the lower pole favoring a hemorrhagic/proteinaceous cyst relatively similar nonspecific bilateral perinephric stranding. URINARY BLADDER: Bladder is partially decompressed accentuating the wall thickness. Similar nodularity of the bladder trigone likely from adjacent enlarged prostate, unchanged from priors. OTHER: Similar asymmetric left greater than right scarring and/or atelectasis. Heart size is normal. Partial ly evaluated coronary atherosclerotic disease. The evaluation of the solid organs is limited due to lack of IV contrast. The evaluation of bowel is limited due to lack of oral contrast. No focal liver lesions. Gallbladder is normal. No biliary ductal dilation. The spleen, adrenals, and pancreas are unremarkable. Tiny hiatal hernia. Stomach is decompressed and unremarkable. No evidence of bowel obstruction or foc al inflammation. Scattered colonic diverticulosis without diverticulitis. Mild colorectal stool burde n. Index is normal. No free intra-abdominal air or free fluid. No pathologically enlarged abdominal o r pelvic adenopathy. Scattered aortobiiliac atherosclerotic disease. No evidence of aneurysmal dilation. Anterior abdominal wall is unremarkable. Partially imaged median sternotomy wires. No evidence of acute fracture or suspicious osseous abnorma lities. IMPRESSION: 1. No imaging findings of obstructive uropathy to correlate with patient's symptoms. Correlate with u rinalysis to exclude urinary tract infection. 2. Stable bilateral hypodense renal lesions favored to represent cysts. 3. Overall stable nodularity of the inferior bladder wall, likely from enlarged nodular prostate glan d, unchanged. Relation with PSA and possibly follow-up with cystoscopy if indicated. Electronically signed by: Surendra Cespedes DO (12/22/2021 11:20 AM) [id number]
[2021-12-22] MEDS ORDERED: CEFD300C PO (11:39)
== END 2021-12-22 11:43 | disposition home or self-care (01) ==
LOC: ER 07:49
DX: N30.01 Acute cystitis with hematuria (principal); Z87.891 Personal history of nicotine dependence
CPT/HCPCS: 36415; 74176; 80048; 81001; 85007; 85025; 87077; 87086; 87186; 96374; 99284; J0696